=== PATIENT | male | born 1955 | race Caucasian/White ===

== ENCOUNTER 2016-07-06 10:26 | Day surgery (SDC) | payer BC ==
--- NOTE | 2016-07-06 07:46 | HP ---
DATE OF SURGERY: 07/06/2016 HISTORY OF PRESENT ILLNESS: The patient is a 61 year-old has history of lipoma in the past excised. He has got two subcutaneous right upper area on the chest and abdomen that he is concerned about enlarging subcutaneous masses or nodules increasing in size and discomfort. He desires excision. PAST MEDICAL HISTORY: He denies any chronic illnesses. PAST SURGICAL HISTORY: Prior lipomas removed in the past. MEDICATIONS: None on a regular basis. ALLERGIES: NKDA. FAMILY HISTORY: Heart disease, diabetes. SOCIAL HISTORY: No smoking or alcohol abuse. REVIEW OF SYSTEMS: Twelve systems reviewed per admission assessment. No chest pain or palpitations other systems negative or noncontributory as above and per preadmission questionnaire. PHYSICAL EXAMINATION: GENERAL: No acute distress. HEENT: Sclerae nonicteric. NECK: No JVD. CHEST: Equal excursion, nonlabored breathing. He has some enlarging subcutaneous masses question lipomas. CVS: Regular rate and rhythm. ABDOMEN: Soft. No peritoneal signs. Question of enlarging abdominal subcutaneous masses as well as right arm. EXTREMITIES: No significant edema or cyanosis. NEURO: Alert, moving extremities symmetrically. No gross motor deficits noted. IMPRESSION: Enlarging symptomatic subcutaneous masses or nodules or lipomas right arm, chest and abdomen. I feel he would benefit from excisional biopsy. Risks and benefits explained in detail including but not limited to bleeding or infection, risk of wound complication or dehiscence, the fact that he may have scars in the area, general risk of aches, pains, burning or numbness possible ferry terminal agent or chronic in nature, general risk of anesthesia, deep venous thrombosis, pulmonary embolism, pneumonia. He understands what we excise likely will not recur but he could get similar nodule or lipomas adjacent to or elsewhere on his body. He understands and agrees to the planned procedure and will proceed with excisional biopsy of right arm, chest and abdomen with enlarging nodules or lipomas as an outpatient.
[~2016-07-06 10:26] MED LIST: DIPRIVAN 200 MG/20 ML IV ONE; Lactated Ringers 1,000 ML IV ONE; SUBLIMAZE 100 MCG/2 ML IV ONE; Sensorcaine 0.25% 10 ML ONE; Versed 2 MG/2 ML Injection IV ONE
[2016-07-06] MEDS ORDERED: CEFAZOLIN 2 GM-D5W BAG** 50 ML IV ONE ×2 (10:44→10:45)
[2016-07-06] MEDS ORDERED: Lactated Ringers 1,000 ML IV ONE ×2 (10:45→14:09)
[2016-07-06] MEDS ORDERED: Lactated Ringers 1,000 ML IV SCH (11:00)
[2016-07-06] MEDS ORDERED: MORPHINE SULFATE 10 MG/ML ONE (13:59)
[2016-07-06] MEDS ORDERED: SUBLIMAZE 100 MCG/2 ML ONE (14:08)
--- NOTE | 2016-07-06 14:29 | OP ---
SURGERY DATE/TIME: 07/06/2016 1212 PREOPERATIVE DIAGNOSIS: Enlarging symptomatic subcutaneous masses right arm, chest and abdomen. POSTOPERATIVE DIAGNOSIS: Enlarging symptomatic subcutaneous masses right arm, chest and abdomen. Multiple lipomatous densities or nodules, path pending. PROCEDURES: 1) Excisional biopsy of 5.3 cm left upper quadrant abdomen medial nodule approximately 5.3 cm. 2) Excisional biopsy of left upper quadrant superior lateral nodule approximately 1.5 cm. 3) Excisional biopsy of left upper quadrant inferior lateral nodule approximately 1.5 cm. 4) Excisional biopsy of right upper abdomen nodule approximately 3 cm. 5) Excisional biopsy of right lower abdomen nonhealing approximately 3.4 cm. 6) Excisional biopsy of mid chest nodule approximately 3 cm. 7) Excisional biopsy of left chest nodule approximately 4.5 cm. 8) Excisional biopsy of right lateral arm nodule approximately 3 cm. 9) Excisional biopsy of right medial arm nodule approximately 2.2 cm. SURGEON: Dr. Ryne Christianson. ANESTHESIA: General. ESTIMATED BLOOD LOSS: Minimal. INDICATIONS: As noted above. Risks and benefits explained in detail and not limited to and consent obtained. DESCRIPTION OF PROCEDURE AND FINDINGS: The patient is taken to the operating room. General anesthesia induced. Arm, chest and abdomen prepped and draped in usual sterile fashion. After official time out and no disagreement with planned procedure, a transverse incision made as he already had a transverse incision in his right lateral arm. Dissection carried down circumferentially around what appeared to be a 3 cm lipomatous density. It was passed off for pathology. Good hemostasis noted. The wound was closed with 4-0 Vicryl. A more medial arm nodule dissection was carried down through the subcu circumferentially around this lipomatous density. It was about 2.2 cm in size. Good hemostasis noted. Both of these were closed with 4-0 Vicryl. 0.25% Marcaine local injected along the skin incision. The patient tolerated the procedure well. There were no immediate complications. Steri-Strips and sterile dressing. Attention was then turned to the chest. Planned first is the more medial chest. Dissection carried down directly overly nodule and circumferentially around what appeared to be a 2 cm lipomatous density off the mid chest. Passed off. Good hemostasis noted. The wound was closed with 4-0 Vicryl. The left lateral chest nodule dissection carried down circumferentially what appeared to be lipomatous density this measured about 4.5 cm in size, carefully freed from the surrounding tissue down the chest wall and passed off. Good hemostasis noted. Skin closed with 4-0 Vicryl as well as closure of 4-0 Vicryl in the mid chest. Steri-Strips and sterile dressing applied at the end of the procedure. Attention is then turned to the abdomen. The left upper quadrant had three separate densities starting first with more medial one. Dissection carried down circumferentially what appeared to be a 5.3 cm lobulated lipomatous density carefully freed and passed off. Good hemostasis noted. Skin closed with 4-0 Vicryl. Attention is then turned to the left upper quadrant lateral density, dissection carried down. It was about 1.5 cm carefully from the surrounding subcu and passed off. Good hemostasis noted. The skin closed with 4-0 Vicryl. Attention is then turned to left upper forearm inferior lateral nodule dissection carried down over top of it carefully dissecting out what appeared to be 1.5 cm nodule. Carefully freed from the more normal appearing palpable subcutaneous tissue around. The specimen is passed off. Good hemostasis noted. Skin closed with 4-0 Vicryl in all three of these to the corner incision. Steri-Strips and sterile dressing applied. 0.25% Marcaine local injected along the skin incision. Attention is then turned to the right upper abdomen. Dissection carried down circumferentially around what appeared to be a 3 cm lipomatous density free from the more normal appearing subcutaneous fat and fascia beneath. Good hemostasis noted. Skin closed with 4-0 Vicryl. Attention is then turned to the lower right abdominal nodule. Dissection carried down circumferentially around a denser lipomatous density. It was denser in the surrounding more normal palpable subcu fat, this was carefully mobilized out and measured about 3.4 cm. Good hemostasis noted. Skin closed with 4-0 Vicryl. Steri-Strips and sterile dressing applied. 0.25% Marcaine local injected along all these abdominal incisions, chest incision and arm incision. Steri-Strips and sterile dressing applied. The patient tolerated the procedure well. There were no immediate complications. He was transferred to the recovery room in fair condition. Findings discussed with the family out in the waiting area.
[2016-07-06] MEDS ORDERED: Zofran 4 MG/2 ML VIAL ONE (14:31)
[2016-07-06 15:35] VITALS: PULSE 55
[2016-07-06 16:36] VITALS: BP 133/57; O2SAT 98
== END 2016-07-06 16:00 | disposition home or self-care (01) ==
LOC: SDC 10:26
PROVIDERS: ATTEND Surgery
PROC: 0HB7XZX Excision of Abdomen Skin, External Approach, Diagnostic (ICD-10-PCS; principal; 2016-07-06)
PROC: 0HB5XZX Excision of Chest Skin, External Approach, Diagnostic (ICD-10-PCS; 2016-07-06)
PROC: 0HBEXZX Excision of Left Lower Arm Skin, External Approach, Diagnostic (ICD-10-PCS; 2016-07-06)
DX: R22.31 Localized swelling, mass and lump, right upper limb (principal); R19.02 Left upper quadrant abdominal swelling, mass and lump; R19.01 Right upper quadrant abdominal swelling, mass and lump; R19.03 Right lower quadrant abdominal swelling, mass and lump; R22.2 Localized swelling, mass and lump, trunk; R20.8 Other disturbances of skin sensation
CPT/HCPCS: 00400; 00700; 36415; J0690; J2250; J2270; J2405; J2704; J3010

== ENCOUNTER 2018-07-17 12:06 | Emergency (ER) | payer BC ==
[2018-07-17 12:39] VITALS: BP 111/85
--- NOTE | 2018-07-17 12:52 | ERPHSYRPT ---
- History of Present Illness Time Seen by Provider: 07/17/18 12:48 Source: patient Exam Limitations: no limitations Patient Subjective Stated Complaint: cough, chest congestion. productive cough with yellow sputum. fevers on and off for 4 nights. reports that he went to see his regular doctor. got 2 scripts for azithromycin and mucinex. Triage Nursing Assessment: alert and oriented. lungs clear to auscultation. able to ambulate in to room no difficulties. no increased work of breathing. Physician History: cough, chest congestion. productive cough with yellow sputum. fevers on and off for 4 nights. reports that he went to see his regular doctor. got 2 scripts for azithromycin and mucinex. Patient is also concerned about recent hepatitis A exposure. Patient has eaten at a local [employer] where one of the fast food services manager was diagnosed with hepatitis A. , So he wants that to be checked out. Associated Symptoms: denies symptoms Allergies/Adverse Reactions: No Known Drug Allergies Allergy (Unverified 04/05/16 22:15) Home Medications: No Reportable Medications [No Reported Medications] 07/06/16 [History] Hx Tetanus, Diphtheria Vaccination/Date Given: (2010) Hx Influenza Vaccination/Date Given: Yes (2016) Hx Pneumococcal Vaccination/Date Given: No - Review of Systems Constitutional: No Fever, No Chills Eyes: No Symptoms Ears, Nose, & Throat: No Symptoms Respiratory: No Cough, No Dyspnea Cardiac: No Chest Pain, No Edema, No Syncope Abdominal/Gastrointestinal: No Abdominal Pain, No Nausea, No Vomiting, No Diarrhea Genitourinary Symptoms: No Dysuria Musculoskeletal: No Back Pain, No Neck Pain Skin: No Rash Neurological: No Dizziness, No Focal Weakness, No Sensory Changes Psychological: No Symptoms Endocrine: No Symptoms All Other Systems: Reviewed and Negative - Past Medical History Pertinent Past Medical History: Yes Neurological History: No Pertinent History ENT History: No Pertinent History Cardiac History: No Pertinent History Respiratory History: No Pertinent History Endocrine Medical History: No Pertinent History Musculoskeletal History: No Pertinent History GI Medical History: Polyps History: No Pertinent History Psycho-Social History: No Pertinent History Male Reproductive Disorders: No Pertinent History - Past Surgical History Past Surgical History: Yes Neuro Surgical History: No Pertinent History Cardiac: No Pertinent History Respiratory: No Pertinent History Gastrointestinal: No Pertinent History Genitourinary: No Pertinent History Musculoskeletal: Orthopedic Surgery Male Surgical History: No Pertinent History Other Surgical History: left ankle x2. right ankle. fatty tumors removed - Social History Smoking Status: Never smoker Exposure to second hand smoke: No Drug Use: none Patient Lives Alone: No - Nursing Vital Signs Nursing Vital Signs: Initial Vital Signs Respiratory Rate 20 07/17/18 12:07 - Physical Exam General Appearance: no apparent distress, alert Eye Exam: PERRL/EOMI, eyes nml inspection Ears, Nose, Throat Exam: normal ENT inspection, TMs normal, pharynx normal, moist mucous membranes Neck Exam: normal inspection, non-tender, supple, full range of motion Respiratory Exam: normal breath sounds, lungs clear, No respiratory distress Cardiovascular Exam: regular rate/rhythm, normal heart sounds, normal peripheral pulses Gastrointestinal/Abdomen Exam: soft, normal bowel sounds, No tenderness, No mass Back Exam: normal inspection, normal range of motion, No CVA tenderness, No vertebral tenderness Extremity Exam: normal inspection, normal range of motion, pelvis stable Neurologic Exam: alert, oriented x 3, cooperative, normal mood/affect, nml cerebellar function, nml station & gait, sensation nml, No motor deficits Skin Exam: normal color, warm, dry, No rash Lymphatic Exam: No adenopathy - Course Nursing assessment & vital signs reviewed: Yes Ordered Tests: Active Orders 24 hr Category Date Time Status CBC W DIFF Stat Lab 07/17/18 12:36 Ordered CMP Stat Lab 07/17/18 12:36 Ordered - Progress Progress: unchanged Counseled pt/family regarding: diagnosis, need for follow-up - Departure Departure Disposition: Home Clinical Impression: Exposure to hepatitis A Condition: Stable Critical Care Time: No Referrals: TUNDE LI [Primary Care Provider] - Additional Instructions: Patient is given local health department bulletin about hepatitis A. Discharge/Care Plan LOUIE WALLACE was seen on 07/17/18 in the Emergency Room. The patient was counseled regarding Diagnosis,Lab results, Imaging studies, need for follow up and when to return to the Emergency Room. Prescriptions given: Discharge Note I have spoken with the patient and/or caregivers. I have explained the patient' s condition, diagnosis and treatment plan based on the information available to me at this time. I have answered the patient's and/or caregiver's questions and addressed any concerns. The patient and/or caregivers have as good understanding of the patient's diagnosis, condition and treatment plan as can be expected at this point. The vital signs have been stable. The patient's condition is stable and appropriate for discharge from the emergency department. The patient will pursue further outpatient evaluation with the primary care physician or other designated or consulting physician as outlined in the discharge instructions. The patient and/or caregivers are agreeable to this plan of care and follow-up instructions have been explained in detail. The patient and/or caregivers have received these instruction. The patient/and or caregivers are aware that any significant change in condition or worsening of symptoms should prompt an immediate return to this or the closest emergency department or call 911.
[2018-07-17 12:58] LABS: BASOPHIL % 0.4 % (0.0-0.4); Basophil (Absolute #) 0.02 (0-0.4); Eosinophil % 2.8 % (0.00-5.0); Eosinophil (Absolute #) 0.15 (0-0.5); Granulocytes % 52.5 % (36.0-66.0); Hematocrit 44.8 % (42-50); Hemoglobin 14.8 gm/dl (12.5-18.0); Lymphocyte (Absolute #) 2.01 (1.0-4.6); Lymphocytes % 37.7 % (24.0-44.0); Mean Cell Volume 89.8 fl (78-100); Mean Corpuscular Hemoglobin 29.7 pg (26-32); Mean Platelet Volume 10.1 fl (6-9.5); Monocyte (Absolute #) 0.35 (0.0-1.3); Monocytes % 6.6 % (0.0-12.0); Platelet Count 195 K/mm3 (150-450); Red Blood Count 4.99 M/mm3 (4.1-5.6); Red Cell Distribution Width 14.2 % (11.5-14.0); White Blood Count 5.3 K/mm3 (4.0-10.5)
[2018-07-17 13:10] LABS: ALBUMIN 4.2 g/dL (3.5-5.0); ALKALINE PHOSPHATASE 90 U/L (38-126); ANION GAP 14.7 MEQ/L (5-15); BLOOD UREA NITROGEN 18 mg/dL (9-20); CHLORIDE 109 mmol/L (98-107); Calcium 9.1 mg/dL (8.4-10.2); Carbon Dioxide 25 mmol/L (22-30); Creatinine 1 1.17 mg/dL (0.66-1.25); Glucose 96 mg/dL (74-106); Potassium 4.2 mmol/L (3.5-5.1); SGOT/AST 26 U/L (17-59); SGPT/ALT 28 U/L (0-50); SODIUM 144 mmol/L (137-145); Total Protein 7.3 g/dL (6.3-8.2)
== END 2018-07-17 13:11 | disposition home or self-care (01) ==
LOC: ED 12:06
DX: Z20.5 Contact with and (suspected) exposure to viral hepatitis (principal); R05 Cough; R09.89 Other specified symptoms and signs involving the circulatory and respiratory systems; R50.9 Fever, unspecified
CPT/HCPCS: 36415; 80053; 85025; 86708; 86709; 99283